=== PATIENT | male | born 1995 | race Caucasian/White ===

== ENCOUNTER 2016-12-28 12:50 | Emergency (ER) | payer BC ==
[~2016-12-28] VITALS: Ht 180.3 cm; Wt 87.1 kg
[2016-12-28 13:08] VITALS: BP 135/71; TEMP 36.8; Ht 180.3 cm; Wt 87.1 kg
[2016-12-28] MEDS ORDERED: ESCI10TA17 PO (14:01)
--- NOTE | 2016-12-28 14:29 | DIAGNOSTIC IMAGING REPORT ---
R HAND MIN 3 VIEWS ROUTINE CLINICAL HISTORY: 21 years-old Male presenting with right hand swelling, pain, base of thumb/1st metacarpal. TECHNIQUE: Frontal, oblique, and lateral views the right hand were obtained. COMPARISON: None. FINDINGS: Add soft tissue density in the region of the thenar eminence without soft tissue calcification. No fracture or malalignment. No degenerative change. No radiopaque foreign body. IMPRESSION: No acute osseous injury of the right hand. Soft tissue swelling of the thenar eminence. Electronically signed by: Humberto Romero M.D. 12/28/2016 2:28 PM Dictated Date/Time: 12/28/2016 2:27 PM
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
[2016-12-28 15:44] VITALS: PULSE 68; O2SAT 97
== END 2016-12-28 16:10 | disposition home or self-care (01) ==
LOC: C.EDB 12:55 → C.EDD 16:10
DX: S60.221A Contusion of right hand, initial encounter (principal); W01.0XXA Fall on same level from slipping, tripping and stumbling without subsequent striking against object, initial encounter

== ENCOUNTER 2017-01-11 17:26 | Emergency (ER) | payer BC ==
[~2017-01-11] VITALS: Ht 180.3 cm; Wt 93.6 kg
[~2017-01-11 17:26] MED LIST: ESCI10TA17 PO
[2017-01-11 17:30] VITALS: TEMP 36.7; Ht 180.3 cm; Wt 93.6 kg
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
--- NOTE | 2017-01-11 18:47 | DIAGNOSTIC IMAGING REPORT ---
SINGLE VIEW PELVIS; 2 VIEWS RIGHT HIP CLINICAL HISTORY: Right hip pain. FINDINGS: An AP view of the pelvis with AP and frog-leg views of the right hip are obtained. No prior studies are available for comparison at the time of dictation. The skeletal structures are well mineralized. No fracture is seen in the hips or bony pelvis. The joint spaces of the hips are well-maintained. The sacroiliac joints are normal. The overlying soft tissues are within normal limits. There is a nonobstructed abdominal bowel gas pattern. IMPRESSION: Unremarkable radiographic assessment of the hips and pelvis. Electronically signed by: Rip Lewis M.D. 01/11/2017 6:45 PM Dictated Date/Time: 01/11/2017 6:44 PM
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
[2017-01-11 18:50] VITALS: BP 172/69; PULSE 61; O2SAT 100
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
== END 2017-01-11 19:22 | disposition home or self-care (01) ==
LOC: EDBD 17:26 → C.EDB 17:28
DX: S16.1XXA Strain of muscle, fascia and tendon at neck level, initial encounter (principal); S70.01XA Contusion of right hip, initial encounter; V09.3XXA Pedestrian injured in unspecified traffic accident, initial encounter